=== PATIENT | male | born 1975 | race Caucasian/White ===

== ENCOUNTER 2023-06-24 18:57 | Emergency (ER) | payer BC, SELFPAY ==
[2023-06-24 18:57] VITALS: BMI 29.1
[2023-06-24 19:09] VITALS: BP 169/100
--- NOTE | 2023-06-24 22:11 | ED.GENMED ---
History of Present Illness
General
Chief Complaint: Back Pain
Source: patient
Exam Limitations: none
Time Seen by Provider: 06/24/23 22:01
Nursing documentation reviewed up to this point in time: agreed with
Travel History
Have you had any contact with someone who has COVID-19?: No
Do you have any symptoms of coronavirus? Fever > 100 degrees, chills, cough, shortness of breath, sore throat, loss of taste or smell, muscle aches, or headache?: No
History of Present Illness
History of Present Illness:
Patient presents to ED secondary to worsening right lower back pain, radiating down back of his leg over the past 2 weeks. Patient states that his symptoms started at work, when he reached up to tighten bolt and felt popping sensation in his back.
Denies direct trauma, although patient states that he does move heavy equipment. Denies loss of sensation or weakness. Denies urinary or bowel incontinence. Denies fever or chills. Patient has had back pain in the past secondary to injury.
Patient has taken Advil this morning without relief in symptoms.
Past History
Past History
ED Past Medical History: None
ED Past Surgical History: None
Social History
Tobacco: Non-smoker
Personal: Single
Living: alone
Employment: Other (laid off)
Review of Systems
Review of Systems
Allergies reviewed?: Yes
Constitutional: Reports no symptoms; Denies fever
EENT: Reports no symptoms
ABD/GI: Reports no symptoms
: Denies incontinence
Musculoskeletal: Reports back pain
Skin: Reports no symptoms
Neurological: Reports no symptoms; Denies weakness or numbness
Phy Exam
Physical Exam
Physical Exam:
Physical Exam
General: mild painful distress, not acutely ill. afebrile
Head: nc/at. eomi
Neck: supple. no meningeal signs.
Abdomen: normal bowel sounds. not tender.
Back: no midline tenderness. mild right lower back tenderness at level of L5-S1, with positive straight leg raise.
Neuro: alert and oriented. no focal neurological deficits
Skin: no rash
Psychiatric: well kept. interactive and cooperative
Extremities: no edema. no calf tenderness.
Course
Orders/Labs/Results
Orders:
Orders
06/24/23 22:08
Acetaminophen [Tylenol] 1,000 mg PO NOW STA
Dexamethasone Pf [Decadron] 10 mg PO NOW STA
06/24/23 22:09
Ibuprofen [Motrin] 400 mg PO NOW STA
CR Lumbar Spine Comp Min 4 Vw* Urgent
Comment:
Reason For Exam: right lower back pain
Vital Signs
Initial and Last Documented VS:
Initial Vital Signs
Temp Pulse Resp BP Pulse Ox
99 F 66 20 169/100 97
06/24/23 19:09 06/24/23 19:09 06/24/23 19:09 06/24/23 19:09 06/24/23 19:09
Last Documented Vital Signs
Temp Pulse Resp BP Pulse Ox
99 F 70 18 148/89 97
06/24/23 19:09 06/25/23 00:38 06/25/23 00:38 06/25/23 00:38 06/25/23 00:38
MDM/Problems Addressed
MDM/Problems Addressed:
X-ray: No acute findings. Otherwise, patient remains afebrile and neurovascularly intact during observation. Patient will be treated conservatively with recommendation to apply warm compress at home along with NSAIDs, as well as steroids and
outpatient follow-up at [facility], where he has been seen in the past. Patient currently does not have any exam findings concerning for cauda equina syndrome. However, patient cautioned regarding any neurological deficit, which should
warrant immediate evaluation in the emergency department, i.e. fever/weakness/incontinence. Patient expresses understanding at time of discharge.
*Critical Care Note
Total Time (30-74mins, 75-104mins- exclusive of procedures): Not Applicable
ED Attending Note
-
Portions of this chart may have been created with voice recognition software.� Occasional wrong word or��sound alike� substitutions may have occurred due to the inherent limitations of voice recognition software.
Discharge Plan
Departure
Patient Disposition: Home (Routine Discharge)
Date of Disposition: 06/25/23
Time of Disposition: 00:01
Patient with high blood pressure during this ER visit?: Yes
Condition: Good
Discharge Problem:
Back pain
Instructions: Low Back Pain (DC)
Prescriptions:
New
methylprednisolone [Medrol (Ped[place])] 4 mg tablets,dose pack
4 mg PO DAILY Qty: 21 0RF
Rx Instructions:
As directed
cyclobenzaprine 10 mg tablet
10 mg PO TIDPRN PRN (Reason: muscle spasm) Qty: 14 0RF
No Action
cephalexin 500 MG capsule
500 mg PO QID Qty: 40 0RF
hydrocodone-acetaminophen 5 MG/500 MG tablet
1 tab PO .Q4-6HPRN PRN (Reason: PAIN) Qty: 20 0RF
amoxicillin-pot clavulanate [Augmentin] 1 EACH tablet
1 ea PO BID Qty: 19 0RF
amoxicillin-pot clavulanate 875 MG/125 MG tablet
1 tab PO Q12 Qty: 10 0RF
cephalexin 500 MG capsule
500 mg PO QID Qty: 28 0RF
[id number] 1 DROP drops,suspension
1 drp RIGHT EAR TID Qty: 1 0RF
Referrals:
NONE,* [Family Provider] -
Activity Restrictions/Additional Instructions:
As discussed, please follow-up with your primary care physician and/or orthopedic surgeon at [facility] for further evaluation and treatment. Your prescriptions have been sent electronically to [facility] pharmacy in [place].
Interventions
Interventions:
*Risk Screen - Suicide Last Done: 06/24/23 19:09
*General Assessment Last Done: 06/24/23 19:09
*Neglect/Abuse Screening Last Done: 06/24/23 19:09
ED- Fall Risk Assessment Last Done: 06/24/23 19:09
*ED COVID-19 Vaccine History Last Done: 06/24/23 19:09
*Nursing Disposition Last Done: 06/25/23 00:40
ED-Musculoskeletal Assessment Last Done: 06/24/23 22:21
Discharge Date and Time
Discharge Date/Time: 06/25/23 00:15
[2023-06-24] MEDS: DECADRON 10 MG PO (22:14)
[2023-06-24] MEDS: TYLENOL 1000 MG PO (22:15)
[2023-06-24] MEDS: MOTRIN 400 MG PO (22:15)
[2023-06-25 00:38] VITALS: BP 148/89
== END 2023-06-25 00:15 | disposition home or self-care (01) ==
LOC: EMR 18:57
PROVIDERS: EMERGENCY PHYSICIAN Emergency Medicine
DX: M54.50 Low back pain, unspecified (principal); R03.0 Elevated blood-pressure reading, without diagnosis of hypertension
CPT/HCPCS: 99283; 72110